=== PATIENT | female | born 1940 | race Caucasian/White ===

== ENCOUNTER 2017-09-01 15:56 | Emergency (ER) | payer OTHER ==
[~2017-09-01] VITALS: Ht 152.4 cm; Wt 81.6 kg
[~2017-09-01 15:56] MED LIST: AMOX1TAB5 PO; CIPRO250 MG PO; LEVSIN/SL0.125 MG PO; LORADAMED10 MG; NEURONTIN300 MG; PROTONIX40 M1; PROTONIX40 MG PO; SINGULAIR10 MG; TRAMADOL HCL-AP1 TAB PO; URIN D.S. TABLE1 TAB PO; XARELTO15 MG; ZANTAC300 MG
[2017-09-01] MEDS ORDERED: CENTRUM SILVER1 EAC3 (16:42)
[2017-09-01] MEDS ORDERED: VITAMIN D310000 UNIT (16:42)
[2017-09-01] MEDS ORDERED: DICY20TA (16:42)
[2017-09-01] MEDS ORDERED: VENTOLIN HFA18 GM (16:43)
[2017-09-01] MEDS ORDERED: ADVAIR HFA 230/12 GM (16:43)
[2017-09-01] MEDS ORDERED: IPRATROPIU0.2 MG/1 M (16:44)
[2017-09-01] MEDS ORDERED: ALBUTEROL2.5 MG/3 M (16:44)
[2017-09-02] MEDS ORDERED: INTESTINEX680 M1 PO (00:59)
[2017-09-02] MEDS ORDERED: ZANTAC300 MG PO (00:59)
[2017-09-02] MEDS ORDERED: DICY20TA PO (00:59)
== END 2017-09-02 01:09 | disposition home or self-care (01) ==
LOC: ER 15:56
DX: R10.31 Right lower quadrant pain (principal); R10.32 Left lower quadrant pain

== ENCOUNTER 2018-08-08 17:51 | Emergency (ER) | payer OTHER ==
[~2018-08-08] VITALS: Ht 152.4 cm; Wt 93.0 kg
[~2018-08-08 17:51] MED LIST changes: +ADVAIR HFA 230/12 GM; +ALBUTEROL2.5 MG/3 M; +CENTRUM SILVER1 EAC3; +DICY20TA; +DICY20TA PO; +INTESTINEX680 M1 PO; +IPRATROPIU0.2 MG/1 M; +VENTOLIN HFA18 GM; +VITAMIN D310000 UNIT; +ZANTAC300 MG PO
== END 2018-08-08 18:54 | disposition home or self-care (01) ==
LOC: ER 17:51
DX: M60.811 Other myositis, right shoulder (principal)

== ENCOUNTER 2018-09-18 17:39 | Emergency (ER) | payer OTHER ==
[~2018-09-18] VITALS: Ht 154.9 cm; Wt 81.6 kg
== END 2018-09-18 19:45 | disposition home or self-care (01) ==
LOC: ER 17:39
DX: S20.212A Contusion of left front wall of thorax, initial encounter (principal); S79.812A Other specified injuries of left hip, initial encounter; W18.09XA Striking against other object with subsequent fall, initial encounter; Y93.89 Activity, other specified; Y92.89 Other specified places as the place of occurrence of the external cause; Y99.8 Other external cause status

== ENCOUNTER 2021-10-26 22:40 | Emergency (ER) | payer OTHER ==
[~2021-10-26] VITALS: Ht 144.8 cm; Wt 70.3 kg
[2021-10-26] MEDS ORDERED: COZAAR25 MG PO (23:39)
[2021-10-26] MEDS ORDERED: ELIQUIS2.5 MG PO (23:39)
[2021-10-26] MEDS ORDERED: LEVSIN0.125 MG PO (23:40)
[2021-10-26] MEDS ORDERED: ATORVASTATIN CA10 MG PO (23:40)
[2021-10-26] MEDS ORDERED: SEROQUEL25 MG PO (23:40)
[2021-10-26] MEDS ORDERED: ARICEPT5 MG PO (23:40)
[2021-10-27] MEDS ORDERED: ACETAMINOPHEN650 M2 PO (04:03)
[2021-10-27] MEDS ORDERED: NORFLEX100MG PO (04:03)
== END 2021-10-27 03:55 | disposition home or self-care (01) ==
LOC: ER 22:40
DX: M54.2 Cervicalgia (principal); Z88.6 Allergy status to analgesic agent; Z86.73 Personal history of transient ischemic attack (TIA), and cerebral infarction without residual deficits; Z20.822 Contact with and (suspected) exposure to COVID-19

== ENCOUNTER 2024-03-24 10:33 | Outpatient (CLI) | payer OTHER ==
[~2024-03-24 10:33] MED LIST changes: +ACETAMINOPHEN650 M2 PO; +ARICEPT5 MG PO; +ATORVASTATIN CA10 MG PO; +COZAAR25 MG PO; +ELIQUIS2.5 MG PO; +LEVSIN0.125 MG PO; +NORFLEX100MG PO; +SEROQUEL25 MG PO
== END 2024-03-24 10:34 | disposition home or self-care (01) ==
LOC: NUCLEAR 10:33
PROVIDERS: ATTEND Psychiatry & Neurology Clinical Neurophysiology
DX: G30.1 Alzheimer's disease with late onset (principal); G31.01 Pick's disease
CPT/HCPCS: 78803; A9557

== ENCOUNTER 2024-04-19 02:23 | Inpatient (IN) | payer OTHER ==
[~2024-04-19] VITALS: Ht 152.4 cm; Wt 90.7 kg
[2024-04-19] MEDS ORDERED: ALBUTEROL SULFATE 3 ML/2.5 MG AMPUL.NEB IH ONE ×3 (02:42→08:03)
[2024-04-19] MEDS ORDERED: IPRATROPIUM BROMIDE 0.5 MG/2.5 ML AMPUL.NEB IH ONE (02:42)
[2024-04-19] MEDS ORDERED: ALBUTEROL SULFATE 3 ML/2.5 MG AMPUL.NEB IH SCH ×2 (02:45→04:00)
[2024-04-19] MEDS ORDERED: levoFLOXacin IN DEXTROSE 5 % 500MG/100ML PIGGYBAG IV ONE (02:50)
[2024-04-19] MEDS ORDERED: levoFLOXacin IN DEXTROSE 5 % 500MG/100ML PIGGYBAG IV STA (02:50)
[2024-04-19] MEDS ORDERED: NAMENDA1 EACH PO (02:53)
[2024-04-19 03:33] LABS: HEMATOCRIT 38.6 % (36.0-45.00); HEMOGLOBIN 13.1 g/dL (12.0-15.00); MEAN CELL VOLUME 94.4 fL (80.00-100.00); MEAN CORPUSCULAR HEMOGLOBIN 32.1 pg (27.00-32.0); PLATELET COUNT 198 K/uL (150-450); RED BLOOD COUNT 4.08 M/uL (4.00-6.00); RED CELL DISTRIBUTION WIDTH 13.6 % (11.5-14.5)
[2024-04-19] MEDS ORDERED: METHYLPREDNISOLONE SOD SUCC 125 MG VIAL IV STA (04:00)
[2024-04-19 04:05] LABS: INR 1.27; PARTIAL THROMBOPLASTIN TIME 29.4 SECONDS (22.0-34.0); PROTHROMBIN TIME 13.6 SECONDS (9.0-11.5)
[2024-04-19 04:08] LABS: PH,URINE 5.5 (5.0-8.0); URINE APPEARANCE Clear; URINE BILIRRUBIN Negative (NEGATIVE); URINE BLOOD Negative; URINE COLOR Dark Yellow; URINE GLUCOSE Negative (NEGATIVE); URINE KETONE Negative (NEGATIVE); URINE LEUKOCYTE Negative; URINE NITRATE Negative
[2024-04-19 04:10] LABS: ALBUMIN 3.2 gm/dL (3.4-5.0); BILIRUBIN TOTAL 1.48 mg/dL (0.3-1.2); CALCIUM 9.1 mg/dL (8.5-10.1); CREATININE SERUM 0.6 mg/dL (0.55-1.02); GFR 95.71; TOTAL PROTEIN 7.2 gm/dL (6.4-8.2)
[2024-04-19 04:10] LABS: URINE BACTERIA 122.3 uL (0.0-1933); URINE RBC 44.9 uL (0.0-20.8); URINE WBC 15.5 uL (0.0-23.2)
[2024-04-19 04:17] LABS: POTASSIUM 2.94 mEq/L (3.5-5.1)
[2024-04-19 04:21] LABS: URINE CRYSTALS FEW /HPF; URINE MUCUS MODERATE; URINE PROTEIN 100 (NEGATIVE)
[2024-04-19 04:22] LABS: URINE EPITHELIAL CELLS 0-4 /HPF
[2024-04-19] MEDS ORDERED: ONDANSETRON HCL 2 MG/ML VIAL ONE (05:39)
[2024-04-19 07:07] LABS: ABG PH 7.379 (7.35-7.45); ABG PO2 46.4 mmHg (80-100); ABG pCO2 48.4 mmHg (35-45); SaO2 81.4 %; Tco2 29.5 mmol/l; allen test SATISFACTORY; o2 21 %; puncture site RADIAL LEFT
[2024-04-19] MEDS ORDERED: FUROsemide 20 MG/2 ML VIAL IV SCH (17:52)
[2024-04-19] MEDS ORDERED: ENOXAPARIN SODIUM 80 MG/0.8 ML SYRINGE SUBCUTANEO SCH (17:52)
[2024-04-19] MEDS ORDERED: NITROGLYCERIN IN 5 % DEXTROSE 250 ML IV SCH (17:52)
[2024-04-19] MEDS ORDERED: IPRATROPIUM BROMIDE 0.5 MG/2.5 ML AMPUL.NEB IH SCH (17:55)
[2024-04-19] MEDS ORDERED: DEXTROSE 50 % IN WATER 0.5 G/ML DISP.SYRIN IV PRN (18:00)
[2024-04-19] MEDS ORDERED: INSULIN LISPRO 1,000 UNIT/10 ML UNITS SUBCUTANEO PRN (18:00)
[2024-04-19] MEDS ORDERED: AMIODARONE HCL 50 MG/ML AMPUL IV ONE ×2 (18:00→20:35)
[2024-04-19] MEDS ORDERED: ACETAMINOPHEN 500 MG GEL..CAP PO PRN (18:00)
[2024-04-19] MEDS ORDERED: hydrOXYzine PAMOATE 25 MG CAPSULE PO ONE (19:02)
[2024-04-19 19:43] LABS: D DIMER 0.62 MG/L; PARTIAL THROMBOPLASTIN TIME 27.3 SECONDS (22.0-34.0)
[2024-04-19 19:47] LABS: PROTHROMBIN TIME 10.9 SECONDS (9.0-11.5)
[2024-04-19 20:00] VITALS: BP 116/53; O2SAT 94
[2024-04-19] MEDS ORDERED: FUROsemide 20 MG/2 ML VIAL ONE (20:35)
[2024-04-19] MEDS ORDERED: AMIODARONE IN DEXTROSE,ISO-OSM 360 MG/200 ML IV.SOLN IV ONE (20:36)
[2024-04-19] MEDS ORDERED: NITROGLYCERIN IN 5 % DEXTROSE 50 MG/250 ML BOTTLE IV ONE (20:36)
[2024-04-19] MEDS ORDERED: ENOXAPARIN SODIUM 80 MG/0.8 ML SYRINGE SUBCUTANEO ONE (20:36)
[2024-04-19 21:00] VITALS: BP 95/57; O2SAT 95
[2024-04-19 22:00] VITALS: BP 101/68; O2SAT 98
[2024-04-19 23:16] VITALS: BP 109/61; O2SAT 100
[2024-04-20] VITALS (18 sets, daily range): BP systolic 83–141; BP diastolic 50–116; O2SAT 95–100
[2024-04-20] MEDS ORDERED: ENOXAPARIN SODIUM 80 MG/0.8 ML SYRINGE SUBCUTANEO ONE (02:32)
[2024-04-20] MEDS ORDERED: NITROGLYCERIN IN 5 % DEXTROSE 250 ML IV SCH (07:15)
[2024-04-20 07:24] LABS: CHOL HDL RATIO 2.9 (0-5.0); TSH 0.816 uIU/mL (0.358-3.74)
[2024-04-20] MEDS ORDERED: FAMOTIDINE/PF 20 MG in 0.9 % SODIUM CHLORIDE 8 ML IV PUSH SCH (09:00)
[2024-04-20] MEDS ORDERED: ENOXAPARIN SODIUM 100 MG/ML SYRINGE SUBCUTANEO SCH (09:00)
[2024-04-20] MEDS ORDERED: AZITHROMYCIN 500 MG VIAL IV SCH (11:52)
[2024-04-20] MEDS ORDERED: METHYLPREDNISOLONE SOD SUCC 40 MG VIAL IV SCH (11:53)
[2024-04-20] MEDS ORDERED: IPRATROPIUM BROMIDE 0.5 MG/2.5 ML AMPUL.NEB IH SCH (13:00)
[2024-04-20] MEDS ORDERED: HALOPERIDOL LACTATE 5 MG/ML AMPUL ONE (15:52)
[2024-04-20] MEDS ORDERED: DIPHENHYDRAMINE HCL 50 MG/ML VIAL 1ML ONE (15:52)
[2024-04-20] MEDS ORDERED: POTASSIUM CHLORIDE 20MEQ/100ML H2O PB IV SCH (16:00)
[2024-04-20] MEDS ORDERED: HALOPERIDOL LACTATE 5 MG/ML AMPUL IM ONE (16:45)
[2024-04-20] MEDS ORDERED: DIPHENHYDRAMINE HCL 50 MG/ML VIAL 1ML IV ONE (16:45)
[2024-04-20] MEDS ORDERED: LORazepam 2 MG/ML VIAL IM STA (19:52)
[2024-04-21] VITALS (23 sets, daily range): BP systolic 104–139; BP diastolic 65–114; O2SAT 95–100
[2024-04-21 06:53] LABS: HEMATOCRIT 40.9 % (36.0-45.00); MEAN CELL VOLUME 92.9 fL (80.00-100.00); MEAN CORPUSCULAR HEMOGLOBIN 31.8 pg (27.00-32.0); MEAN CORPUSCULAR HGB CONC 34.3 g/dl (32.0-36.0); PLATELET COUNT 306 K/uL (150-450); RED BLOOD COUNT 4.41 M/uL (4.00-6.00); RED CELL DISTRIBUTION WIDTH 13.8 % (11.5-14.5)
[2024-04-21 07:10] LABS: CALCIUM 9.4 mg/dL (8.5-10.1); CREATININE SERUM 0.58 mg/dL (0.55-1.02); GFR 99.53; POTASSIUM 3.68 mEq/L (3.5-5.1)
[2024-04-21] MEDS ORDERED: LORazepam 2 MG/ML VIAL IV PUSH STA (07:38)
[2024-04-21] MEDS ORDERED: AZITHROMYCIN 500 MG VIAL IV ONE (07:43)
[2024-04-21] MEDS ORDERED: DIPHENHYDRAMINE HCL 50 MG/ML VIAL 1ML ONE (08:06)
[2024-04-21] MEDS ORDERED: HALOPERIDOL LACTATE 5 MG/ML AMPUL ONE (08:06)
[2024-04-21] MEDS ORDERED: CHLORHEXIDINE GLUCONATE 120 ML BOTTLE TOP ONE (10:28)
[2024-04-21] MEDS ORDERED: HALOPERIDOL LACTATE 5 MG/ML AMPUL IV PRN (11:00)
[2024-04-21] MEDS ORDERED: QUETIAPINE FUMARATE 25 MG TABLET PO SCH (12:47)
[2024-04-21] MEDS ORDERED: POTASSIUM CHLORIDE 20MEQ/100ML H2O PB IV ONE (14:28)
[2024-04-22] VITALS (18 sets, daily range): BP systolic 92–130; BP diastolic 52–105; O2SAT 94–100
[2024-04-22] MEDS ORDERED: AZITHROMYCIN 500 MG VIAL IV ONE (08:09)
[2024-04-22 09:07] LABS: HEMATOCRIT 42.2 % (36.0-45.00); HEMOGLOBIN 14.8 g/dL (12.0-15.00); MEAN CELL VOLUME 91.6 fL (80.00-100.00); MEAN CORPUSCULAR HEMOGLOBIN 32.2 pg (27.00-32.0); MEAN CORPUSCULAR HGB CONC 35.2 g/dl (32.0-36.0); PLATELET COUNT 350 K/uL (150-450); RED BLOOD COUNT 4.61 M/uL (4.00-6.00); RED CELL DISTRIBUTION WIDTH 14.1 % (11.5-14.5)
[2024-04-22 10:44] LABS: CALCIUM 9.2 mg/dL (8.5-10.1); CREATININE SERUM 0.6 mg/dL (0.55-1.02); GFR 95.71; POTASSIUM 3.71 mEq/L (3.5-5.1)
[2024-04-22] MEDS ORDERED: FAMOTIDINE/PF 20 MG in 0.9 % SODIUM CHLORIDE 8 ML IV PUSH SCH (21:00)
[2024-04-23] VITALS (19 sets, daily range): BP systolic 99–139; BP diastolic 64–102; O2SAT 93–99
[2024-04-23 06:51] LABS: HEMATOCRIT 43.8 % (36.0-45.00); HEMOGLOBIN 14.9 g/dL (12.0-15.00); MEAN CELL VOLUME 93.8 fL (80.00-100.00); MEAN CORPUSCULAR HGB CONC 34.1 g/dl (32.0-36.0); PLATELET COUNT 358 K/uL (150-450); RED BLOOD COUNT 4.67 M/uL (4.00-6.00); RED CELL DISTRIBUTION WIDTH 14.1 % (11.5-14.5)
[2024-04-23 07:37] LABS: CALCIUM 9.3 mg/dL (8.5-10.1); CREATININE SERUM 0.7 mg/dL (0.55-1.02); GFR 80.11; POTASSIUM 3.62 mEq/L (3.5-5.1)
[2024-04-23] MEDS ORDERED: AZITHROMYCIN 500 MG VIAL IV ONE (08:58)
[2024-04-23] MEDS ORDERED: QUETIAPINE FUMARATE 25 MG TABLET PO SCH (09:00)
[2024-04-23] MEDS ORDERED: CLONAZEPAM 0.5 MG TABLET PO SCH (09:42)
[2024-04-23 11:45] LABS: ABG PH 7.567 (7.35-7.45); ABG PO2 69.8 mmHg (80-100); ABG pCO2 46.7 mmHg (35-45); BICARBONATE 41.5 mmol/l (23-25); SaO2 96.7 %; Tco2 42.9 mmol/l
[2024-04-23] MEDS ORDERED: METOPROLOL SUCCINATE 25 MG TAB.SR.24H PO SCH (14:05)
[2024-04-23 16:56] LABS: allen test SATISFACTORY; o2 32 %; puncture site RADIAL RIGHT
[2024-04-23] MEDS ORDERED: AMIODARONE HCL 200 MG TABLET PO SCH (17:00)
[2024-04-24] VITALS (10 sets, daily range): BP systolic 104–149; BP diastolic 66–94; O2SAT 87–100
[2024-04-24] MEDS ORDERED: FAMOTIDINE/PF 20 MG/2 ML VIAL ONE (08:23)
[2024-04-24] MEDS ORDERED: AZITHROMYCIN 500 MG VIAL IV ONE (08:23)
[2024-04-24] MEDS ORDERED: METOPROLOL SUCCINATE 50 MG TAB.SR.24H PO SCH (17:00)
[2024-04-24] MEDS ORDERED: AMIODARONE IN DEXTROSE,ISO-OSM 360 MG/200 ML IV.SOLN IV ONE (17:56)
[2024-04-24] MEDS ORDERED: ONDANSETRON HCL 2 MG/ML VIAL ONE (17:56)
[2024-04-24] MEDS ORDERED: ONDANSETRON HCL 4 MG in 0.9 % SODIUM CHLORIDE 50 ML IV PRN (18:00)
[2024-04-24] MEDS ORDERED: TRAZODONE HCL 50 MG TABLET PO SCH (21:00)
[2024-04-25] VITALS (16 sets, daily range): BP systolic 103–142; BP diastolic 46–98; O2SAT 93–100
[2024-04-25] MEDS ORDERED: AMIODARONE IN DEXTROSE,ISO-OSM 360 MG/200 ML IV.SOLN IV ONE (00:07)
[2024-04-25] MEDS ORDERED: AZITHROMYCIN 500 MG VIAL IV ONE (08:00)
[2024-04-25] MEDS ORDERED: NAMENDA XR 28 MG PO SCH (09:00)
[2024-04-25 09:58] LABS: HEMATOCRIT 48.2 % (36.0-45.00); HEMOGLOBIN 15.9 g/dL (12.0-15.00); MEAN CELL VOLUME 94.3 fL (80.00-100.00); MEAN CORPUSCULAR HEMOGLOBIN 31.2 pg (27.00-32.0); PLATELET COUNT 446 K/uL (150-450); RED BLOOD COUNT 5.11 M/uL (4.00-6.00); RED CELL DISTRIBUTION WIDTH 13.9 % (11.5-14.5)
[2024-04-25 10:28] LABS: ALBUMIN 2.9 gm/dL (3.4-5.0); ALKALINE PHOSPHATASE 67 U/L (50-136); ALT/SGPT 35 U/L (12-78); AST/SGOT 38 U/L (15-37); BILIRUBIN TOTAL 0.75 mg/dL (0.3-1.2); BLOOD UREA NITROGEN 67 mg/dL (7-18); BUN CREA RATIO 49 (7.0-25.0); CALCIUM 9.1 mg/dL (8.5-10.1); CHLORIDE 97 mmol/L (98-107); CREATININE SERUM 1.36 mg/dL (0.55-1.02); GFR 37.22; GLOBULINA 4.7 G/DL (2.4-3.5); GLUCOSE FASTING 152 mg/dL (65-100); OSMOLALITY SERUM 309 MOSM/KG (275-295); POTASSIUM 3.72 mEq/L (3.5-5.1); SODIUM 144 mmol/L (136-145); TOTAL PROTEIN 7.6 gm/dL (6.4-8.2)
[2024-04-25 10:34] LABS: ANION GAP 10 (10.0-20.0); CARBON DIOXIDE 41 mEq/L (21-32); CKMB < 1.0 NG/ML (0.5-3.6)
[2024-04-25] MEDS ORDERED: PIPERACILLIN/TAZOBACTAM SODIUM 3.375 GM in 0.9 % SODIUM CHLORIDE 100 ML IV SCH (12:00)
[2024-04-25] MEDS ORDERED: LORazepam 2 MG/ML VIAL IV PUSH PRN (14:45)
[2024-04-25] MEDS ORDERED: QUETIAPINE FUMARATE 25 MG TABLET PO SCH (17:00)
[2024-04-25] MEDS ORDERED: METOPROLOL TARTRATE 5MG/5ML AMPUL IV SCH (17:00)
[2024-04-26] VITALS (20 sets, daily range): BP systolic 101–122; BP diastolic 55–94; O2SAT 91–100
[2024-04-26 06:18] LABS: HEMATOCRIT 46.2 % (36.0-45.00); HEMOGLOBIN 15.5 g/dL (12.0-15.00); MEAN CELL VOLUME 94.6 fL (80.00-100.00); MEAN CORPUSCULAR HEMOGLOBIN 31.7 pg (27.00-32.0); MEAN CORPUSCULAR HGB CONC 33.5 g/dl (32.0-36.0); PLATELET COUNT 412 K/uL (150-450); RED BLOOD COUNT 4.89 M/uL (4.00-6.00); RED CELL DISTRIBUTION WIDTH 13.8 % (11.5-14.5)
[2024-04-26] MEDS ORDERED: DIATRIZOATE MEGLUMINE, SODIUM 30 ML BOTTLE PO ONE (06:30)
[2024-04-26 06:56] LABS: ALBUMIN 2.7 gm/dL (3.4-5.0); BILIRUBIN TOTAL 0.73 mg/dL (0.3-1.2); CALCIUM 9.1 mg/dL (8.5-10.1); CREATININE SERUM 1.11 mg/dL (0.55-1.02); GFR 47.06; GLOBULINA 4.5 G/DL (2.4-3.5); POTASSIUM 3.16 mEq/L (3.5-5.1); TOTAL PROTEIN 7.2 gm/dL (6.4-8.2)
[2024-04-26] MEDS ORDERED: AZITHROMYCIN 500 MG VIAL IV ONE (08:46)
[2024-04-26 09:17] LABS: ABG PH 7.552 (7.35-7.45); ABG PO2 70.8 mmHg (80-100); ABG pCO2 50.9 mmHg (35-45); BASE EXCESS 18.5 mmol/l; BICARBONATE 43.7 mmol/l (23-25); SaO2 96.8 %; Tco2 45.3 mmol/l
[2024-04-26 09:25] LABS: allen test NO SATISFACTORY; o2 100 %; puncture site RADIAL RIGHT
[2024-04-27] VITALS (24 sets, daily range): BP systolic 87–121; BP diastolic 58–92; O2SAT 97–100
[2024-04-27 06:20] LABS: HEMATOCRIT 45.3 % (36.0-45.00); HEMOGLOBIN 15.2 g/dL (12.0-15.00); MEAN CELL VOLUME 94.2 fL (80.00-100.00); MEAN CORPUSCULAR HEMOGLOBIN 31.6 pg (27.00-32.0); MEAN CORPUSCULAR HGB CONC 33.5 g/dl (32.0-36.0); PLATELET COUNT 393 K/uL (150-450); RED BLOOD COUNT 4.81 M/uL (4.00-6.00); RED CELL DISTRIBUTION WIDTH 13.8 % (11.5-14.5)
[2024-04-27 06:52] LABS: CREATININE SERUM 1.17 mg/dL (0.55-1.02); GFR 44.28
[2024-04-27 07:12] LABS: POTASSIUM 3.38 mEq/L (3.5-5.1)
[2024-04-27] MEDS ORDERED: AZITHROMYCIN 500 MG VIAL IV ONE (07:57)
[2024-04-27] MEDS ORDERED: SODIUM CHLORIDE 0.45 % 1,000 ML IV SCH (09:30)
[2024-04-27] MEDS ORDERED: DEXTROSE 5 % IN WATER 1,000 ML IV SCH (11:30)
[2024-04-27 11:37] LABS: ABG PH 7.563 (7.35-7.45); ABG pCO2 46.8 mmHg (35-45)
[2024-04-27 11:38] LABS: ABG PO2 45.7 mmHg (80-100); BASE EXCESS 16.7 mmol/l; BICARBONATE 41.2 mmol/l (23-25); SaO2 89.5 %; Tco2 42.7 mmol/l; allen test SATISFACTORY; o2 21 %; puncture site RADIAL LEFT
[2024-04-28] VITALS (24 sets, daily range): BP systolic 97–136; BP diastolic 55–92; O2SAT 93–100
[2024-04-28 06:33] LABS: HEMATOCRIT 41.6 % (36.0-45.00); HEMOGLOBIN 14.2 g/dL (12.0-15.00); MEAN CELL VOLUME 93.4 fL (80.00-100.00); MEAN CORPUSCULAR HEMOGLOBIN 31.9 pg (27.00-32.0); MEAN CORPUSCULAR HGB CONC 34.1 g/dl (32.0-36.0); PLATELET COUNT 349 K/uL (150-450); RED BLOOD COUNT 4.45 M/uL (4.00-6.00); RED CELL DISTRIBUTION WIDTH 14.3 % (11.5-14.5)
[2024-04-28] MEDS ORDERED: FAMOTIDINE/PF 20 MG in 0.9 % SODIUM CHLORIDE 8 ML IV PUSH SCH (09:00)
[2024-04-28] MEDS ORDERED: SODIUM CHLORIDE 0.45 % 1,000 ML IV SCH (14:45)
[2024-04-29] VITALS (22 sets, daily range): BP systolic 89–131; BP diastolic 61–85; O2SAT 88–100
[2024-04-29 07:04] LABS: HEMATOCRIT 42.7 % (36.0-45.00); HEMOGLOBIN 14.6 g/dL (12.0-15.00); MEAN CELL VOLUME 92.8 fL (80.00-100.00); MEAN CORPUSCULAR HEMOGLOBIN 31.8 pg (27.00-32.0); MEAN CORPUSCULAR HGB CONC 34.3 g/dl (32.0-36.0); PLATELET COUNT 336 K/uL (150-450); RED CELL DISTRIBUTION WIDTH 14.3 % (11.5-14.5)
[2024-04-29 07:52] LABS: CALCIUM 9.2 mg/dL (8.5-10.1); CREATININE SERUM 0.96 mg/dL (0.55-1.02); GFR 55.64; POTASSIUM 3.03 mEq/L (3.5-5.1)
[2024-04-29] MEDS ORDERED: DIATRIZOATE MEGLUMINE, SODIUM 30 ML BOTTLE PO NR (09:45)
[2024-04-29] MEDS ORDERED: POTASSIUM CHLORIDE 20MEQ/100ML H2O PB IV SCH ×2 (10:00→18:00)
[2024-04-29] MEDS ORDERED: METOCLOPRAMIDE HCL 5 MG/ML VIAL IV SCH (10:23)
[2024-04-30] VITALS (24 sets, daily range): BP systolic 83–120; BP diastolic 49–92; O2SAT 95–100
[2024-04-30 06:51] LABS: HEMOGLOBIN 13.7 g/dL (12.0-15.00); MEAN CELL VOLUME 92.5 fL (80.00-100.00); MEAN CORPUSCULAR HEMOGLOBIN 31.7 pg (27.00-32.0); MEAN CORPUSCULAR HGB CONC 34.3 g/dl (32.0-36.0); PLATELET COUNT 311 K/uL (150-450); RED BLOOD COUNT 4.32 M/uL (4.00-6.00); RED CELL DISTRIBUTION WIDTH 13.9 % (11.5-14.5)
[2024-04-30 07:14] LABS: CALCIUM 8.7 mg/dL (8.5-10.1); CREATININE SERUM 0.81 mg/dL (0.55-1.02); GFR 67.69
[2024-04-30 07:28] LABS: POTASSIUM 2.82 mEq/L (3.5-5.1)
[2024-04-30 11:29] LABS: ABG PH 7.569 (7.35-7.45); ABG PO2 53.5 mmHg (80-100); ABG pCO2 48.4 mmHg (35-45); BASE EXCESS 18.5 mmol/l; BICARBONATE 43.3 mmol/l (23-25); SaO2 93.3 %; Tco2 44.8 mmol/l; allen test SATISFACTORY; o2 50 %; puncture site RADIAL RIGHT
[2024-04-30] MEDS ORDERED: POTASSIUM CHLORIDE IN WATER 40 MEQ/100 ML PIGGYBAG IV SCH (12:32)
[2024-04-30] MEDS ORDERED: SODIUM CHLORIDE 0.45 % 1,000 ML IV SCH (13:00)
[2024-04-30] MEDS ORDERED: POTASSIUM CHLORIDE/D5W 20 MEQ/1,000 ML PIGGYBAG IV SCH (14:00)
[2024-04-30 14:04] LABS: CALCIUM 8.8 mg/dL (8.5-10.1); CHOL HDL RATIO 5.6 (0-5.0); CREATININE SERUM 0.78 mg/dL (0.55-1.02); GFR 70.71
[2024-04-30 14:39] LABS: POTASSIUM 2.72 mEq/L (3.5-5.1)
[2024-04-30] MEDS ORDERED: AMINO ACIDS 4.25%/DEXTROSE 10% 1,000 ML CENTRAL SCH (17:00)
[2024-04-30] MEDS ORDERED: PANTOPRAZOLE SODIUM 80 MG in 0.9 % SODIUM CHLORIDE 100 ML IV SCH (22:00)
[2024-04-30] MEDS ORDERED: POTASSIUM CHLORIDE-0.45% NACL 20 MEQ/1,000 ML PIGGYBAG IV SCH (22:15)
[2024-04-30] MEDS ORDERED: POTASSIUM CHLORIDE-0.45% NACL 1,000 ML IV SCH (22:30)
[2024-05-01] VITALS (23 sets, daily range): BP systolic 85–125; BP diastolic 52–84; O2SAT 98–100
[2024-05-01 10:20] LABS: CALCIUM 8.3 mg/dL (8.5-10.1); CREATININE SERUM 0.73 mg/dL (0.55-1.02); GFR 76.32; POTASSIUM 3.34 mEq/L (3.5-5.1)
[2024-05-01 11:11] LABS: HEMATOCRIT 36.8 % (36.0-45.00); HEMOGLOBIN 12.6 g/dL (12.0-15.00); MEAN CELL VOLUME 92.7 fL (80.00-100.00); MEAN CORPUSCULAR HEMOGLOBIN 31.7 pg (27.00-32.0); MEAN CORPUSCULAR HGB CONC 34.3 g/dl (32.0-36.0); PLATELET COUNT 266 K/uL (150-450); RED BLOOD COUNT 3.97 M/uL (4.00-6.00); RED CELL DISTRIBUTION WIDTH 13.7 % (11.5-14.5)
[2024-05-01] MEDS ORDERED: EPINEPHRINE HCL IV PUSH STA (13:45)
[2024-05-02] VITALS (24 sets, daily range): BP systolic 81–125; BP diastolic 54–97; O2SAT 96–100
[2024-05-02 07:26] LABS: HEMATOCRIT 35.6 % (36.0-45.00); HEMOGLOBIN 12.3 g/dL (12.0-15.00); MEAN CELL VOLUME 94.3 fL (80.00-100.00); MEAN CORPUSCULAR HEMOGLOBIN 32.4 pg (27.00-32.0); MEAN CORPUSCULAR HGB CONC 34.4 g/dl (32.0-36.0); PLATELET COUNT 318 K/uL (150-450); RED BLOOD COUNT 3.78 M/uL (4.00-6.00); RED CELL DISTRIBUTION WIDTH 13.8 % (11.5-14.5)
[2024-05-02 07:59] LABS: CALCIUM 8.3 mg/dL (8.5-10.1); CREATININE SERUM 0.52 mg/dL (0.55-1.02); GFR 112.89; POTASSIUM 3.16 mEq/L (3.5-5.1)
[2024-05-02] MEDS ORDERED: PANTOPRAZOLE SODIUM 40 MG/VIAL VIAL ONE (14:10)
[2024-05-03] VITALS (20 sets, daily range): BP systolic 81–116; BP diastolic 48–87; O2SAT 16–100
[2024-05-03 07:12] LABS: CALCIUM 8.3 mg/dL (8.5-10.1); CREATININE SERUM 0.57 mg/dL (0.55-1.02); GFR 101.54; POTASSIUM 3.07 mEq/L (3.5-5.1)
[2024-05-03] MEDS ORDERED: POTASSIUM CHLORIDE IN WATER 100 ML IV SCH (13:00)
[2024-05-03] MEDS ORDERED: AMIODARONE HCL 200 MG TABLET PO SCH (18:04)
[2024-05-03] MEDS ORDERED: METOCLOPRAMIDE HCL 5 MG/ML VIAL IV SCH (21:00)
[2024-05-04 04:00] VITALS: BP 103/49; O2SAT 100
[2024-05-04 06:57] LABS: CALCIUM 8.1 mg/dL (8.5-10.1); CREATININE SERUM 0.51 mg/dL (0.55-1.02); GFR 115.45; POTASSIUM 3.23 mEq/L (3.5-5.1)
[2024-05-04 07:16] VITALS: BP 102/63; O2SAT 100
[2024-05-04 12:14] VITALS: BP 91/76; O2SAT 100
[2024-05-04 15:41] VITALS: BP 103/68; O2SAT 100
[2024-05-04 20:00] VITALS: BP 104/58; O2SAT 100
[2024-05-04] MEDS ORDERED: 0.9 % SODIUM CHLORIDE 1,000 ML IV SCH (22:00)
[2024-05-05] VITALS (7 sets, daily range): BP systolic 97–140; BP diastolic 54–91; O2SAT 98–100
[2024-05-05 17:40] LABS: ABG PH 7.543 (7.35-7.45); ABG PO2 65.2 mmHg (80-100); ABG pCO2 33.4 mmHg (35-45); BASE EXCESS 5.9 mmol/l; BICARBONATE 28.1 mmol/l (23-25); SaO2 95.3 %; Tco2 29.1 mmol/l
[2024-05-05 17:57] LABS: allen test SATISFACTORY; puncture site RADIAL RIGHT
[2024-05-05 18:00] LABS: o2 21 %
[2024-05-06] VITALS (7 sets, daily range): BP systolic 83–106; BP diastolic 51–64; O2SAT 90–100
[2024-05-06 06:35] LABS: CALCIUM 8.2 mg/dL (8.5-10.1); CREATININE SERUM 0.55 mg/dL (0.55-1.02); GFR 105.82; POTASSIUM 3.47 mEq/L (3.5-5.1)
[2024-05-06] MEDS ORDERED: METOCLOPRAMIDE HCL 5 MG/ML VIAL IV SCH (09:00)
== END 2024-05-06 17:54 | disposition home or self-care (01) | DRG 292 ==
LOC: ER 02:25 → ICU-2 20:01 → ICU 04-20 17:34 → MEDI 05-05 13:41
PROVIDERS: General Practice; Internal Medicine; ADMIT Student in an Organized Health Care Education/Training Program; ATTEND Student in an Organized Health Care Education/Training Program
PROC: B24BZZZ Ultrasonography of Heart with Aorta (ICD-10-PCS; principal; 2024-04-21)
PROC: BW21YZZ Computerized Tomography (CT Scan) of Abdomen and Pelvis using Other Contrast (ICD-10-PCS; 2024-04-28)
PROC: 02HV33Z Insertion of Infusion Device into Superior Vena Cava, Percutaneous Approach (ICD-10-PCS; 2024-04-29)
PROC: 4A12X4Z Monitoring of Cardiac Electrical Activity, External Approach (ICD-10-PCS; 2024-05-05)
DX: I11.0 Hypertensive heart disease with heart failure (principal); E87.1 Hypo-osmolality and hyponatremia; J44.1 Chronic obstructive pulmonary disease with (acute) exacerbation; I48.20 Chronic atrial fibrillation, unspecified; F31.89 Other bipolar disorder; K56.51 Intestinal adhesions [bands], with partial obstruction; I50.9 Heart failure, unspecified; R09.02 Hypoxemia; E87.6 Hypokalemia; I50.1 Left ventricular failure, unspecified; E11.65 Type 2 diabetes mellitus with hyperglycemia; Z79.4 Long term (current) use of insulin; R41.82 Altered mental status, unspecified; F03.90 Unspecified dementia, unspecified severity, without behavioral disturbance, psychotic disturbance, mood disturbance, and anxiety